=== PATIENT | female | born 1935 | race Caucasian/White ===

== ENCOUNTER 2024-06-14 16:20 | Emergency (ER) | payer OTHER ==
[~2024-06-14] VITALS: Ht 157.5 cm; Wt 57.6 kg
[2024-06-14 16:40] VITALS: BP_SYST 99; PULSE 78; RESP 18; TEMP 98.2; O2SAT 96
[2024-06-14 17:09] VITALS: BP_SYST 127; PULSE 73; RESP 18; TEMP 98.1; O2SAT 98
== END 2024-06-14 18:24 | disposition left against medical advice (07) ==
LOC: SED 16:20
DX: R60.0 Localized edema (principal); I10 Essential (primary) hypertension; Z90.710 Acquired absence of both cervix and uterus
CPT/HCPCS: 99281